=== PATIENT | female | born 1955 | race Two or more races ===

== ENCOUNTER → 2019-08-04 | Outpatient (CLI) | payer BC, OTHER ==
[2016-05-12 15:00] VITALS: BP 138/64
[~2019-08-04] MED LIST: CIPR250T30 PO; GLYB1.252 PO; PHEN-444 PO; POLY17PO29 PO
--- NOTE | 2019-08-06 16:26 | RAD ---
EXAM: BILATERAL DIGITAL 3D SCREENING MAMMOGRAPHY. HISTORY: Routine mammographic screening. TECHNIQUE: Bilateral digital 3D and tomographic images were obtained in CC and MLO projections. Computer-aided detection was applied. COMPARISON: None available. This is interpreted as a baseline study. COMPOSITION: A. The breasts are almost entirely fatty. FINDINGS: Atherosclerotic calcifications are benign. There are no suspicious masses, microcalcifications or architectural distortion. The parenchymal pattern is stable. BI-RADS CATEGORY 2: Benign. RECOMMENDATION: 1. Routine screening mammography in one year. If mammography demonstrates dense breast tissue (heterogenously dense or extremely dense, category C or D), which could hide abnormalities, and if other risk factors for breast cancer have been identified, supplemental screening tests that may be suggested by the ordering physician may be of benefit. Dense breast tissue, in and of itself, is a relatively common condition. Therefore, this information is not provided to cause undue concern, but rather to raise awareness and to promote discussion with the referring physician regarding the presence of other risk factors, in addition to dense breast tissue. The results of this mammography examination is provided to the patient and referring physician. The patient should contact their referring physician if any questions or concerns exist regarding this report. PQRS compliance statement - Patient information was entered into a reminder system with a target due date for the next mammogram. "Our facility is accredited by the [employer] Mammography Program." Electronically signed by: America Angeles MD (08/06/2019 4:23 PM) [id number]
== END | disposition home or self-care (01) ==
LOC: MAMMO 08:59
PROVIDERS: ATTEND Family Medicine
DX: Z12.31 Encounter for screening mammogram for malignant neoplasm of breast (principal); N64.89 Other specified disorders of breast
CPT/HCPCS: 77063; 77067

== ENCOUNTER 2020-09-03 11:06 | Emergency (ER) | payer BC, MEDICARE ==
[~2020-09-03] VITALS: Ht 154.9 cm; Wt 54.5 kg
[2020-09-03] MEDS ORDERED: diazePAM 5 MG TABLET PO ONE (11:30)
[2020-09-03] MEDS ORDERED: KETOROLAC 60 MG/2 ML VIAL. IM ONE (11:30)
--- NOTE | 2020-09-03 11:31 | PHYS DOC ---
Past Medical History Past Medical History: Diabetes-Type II, High Cholesterol Additional Past Medical Histor: neuropathy Past Surgical History: No Surgical History Smoking Status: Current Every Day Smoker Alcohol Use: Heavy Drug Use: None General Adult EDM: Chief Complaint: LOWER BACK PAIN OR INJURY HPI: HPI: Patient is a 65 year old female with history of high cholesterol, diabetes type 2, presenting today complaining of 10 out of 10 bilateral low back pain nonradiating in nature, symptoms began on last week after she stood up from sitting position and turned to the left. Patient denies any numbness or tingling to bilateral lower extremities, denies any loss of bowel/bladder function. States symptoms are worse when laying down. Reports sitting up and putting pressure on her back relieves the symptoms. Describes the pain as sharp and intermittent. Review of Systems: Review of Systems: Constitutional: Denies fever or chills. [] GI: Denies abdominal pain, nausea, vomiting, bloody stools or diarrhea. [] : Denies dysuria. [] Musculoskeletal: Reports low back pain Integument: Denies rash. [] Neurologic: Denies headache, focal weakness or sensory changes. [] Psychiatric: Denies depression or anxiety. [] Heart Score: Risk Factors: Risk Factors: DM, Current or recent (<one month) smoker, HTN, HLP, family history of CAD, obesity. Risk Scores: Score 0 - 3: 2.5% MACE over next 6 weeks - Discharge Home Score 4 - 6: 20.3% MACE over next 6 weeks - Admit for Clinical Observation Score 7 - 10: 72.7% MACE over next 6 weeks - Early Invasive Strategies Allergies: Allergies: Allergies Coded Allergies Type Severity Reaction Last Updated Verified No Known Drug Allergies 05/09/16 No Physical Exam: PE: Constitutional: Well developed, well nourished, no acute distress, non-toxic appearance. [] Abdomen: Bowel sounds normal, soft, no tenderness, no masses, no pulsatile masses. [] Skin: Warm, dry, no erythema, no rash. [] Back: Diffuse paraspinal muscle tenderness of bilateral lumbar spine, no midline lumbar spine tenderness, no CVA tenderness. [] Extremities: No tenderness, no cyanosis, no clubbing, ROM intact, no edema. [] Neurologic: Alert and oriented X 3, normal motor function, normal sensory function, no focal deficits noted. [] Psychologic: Anxious appearing patient, very talkative Current Patient Data: Vital Signs: Vital Signs Date Time Temp Pulse Resp B/P (MAP) Pulse Ox O2 Delivery O2 Flow Rate FiO2 09/03/20 11:10 98.3 90 16 174/84 (114) 97 Room Air 98.3 EKG: EKG: [] Radiology/Procedures: Radiology/Procedures: []PROCEDURE: LUMBAR SPINE 2-3V XR LUMBAR SPINE 2-3V History: Reason: low back pain, no known injury / Spl. Instructions: / History: Comparison: None. Technique: 3 views of the lumbar spine. Findings: 5 nonrib-bearing lumbar vertebral segments. No fracture or dislocation. Mild levoconvex curvature. Mild anterolisthesis of L4 on L5. Mild degenerative changes with disc space narrowing at L2-L3 and L4-L5. Mild degenerative endplate changes L2-L3. Atherosclerotic calcification of the aorta. Sacroiliac joints are unremarkable. Impression: 1. Mild degenerative changes of the lumbar spine without acute finding. No significant changes from 2018 comparison. Electronically signed by: Jeremy Becerra MD (09/03/2020 12:25 PM) [facility] DICTATED and SIGNED BY: JEREMY BECERRA MD DATE: 09/03/20 [id number] 0 Course & Med Decision Making: Course & Med Decision Making Pertinent Labs and Imaging studies reviewed. (See chart for details) This is a 65-year-old female patient presenting to the ED today complaining of bilateral low back pain, symptoms began on last week when she was standing up and turned to the left. No cauda equina syndrome symptoms. Lumbar spine x-rays noted for DJD otherwise no acute findings. Discharge to cyclobenzaprine. Follow-up with PCP in 1 week. She is already on gabapentin and an NSAID. Dragon Disclaimer: Dragon Disclaimer: This electronic medical record was generated, in whole or in part, using a voice recognition dictation system. Departure Departure Impression: Primary Impression: Low back pain Qualified Codes: M54.5 - Low back pain Additional Impression: Degenerative joint disease (DJD) of lumbar spine Qualified Codes: M47.816 - Spondylosis without myelopathy or radiculopathy, lumbar region Disposition: 01 DC HOME SELF CARE/HOMELESS Condition: STABLE Referrals: Arturo SELBY MD (PCP) Follow-up in 1 week Patient Instructions: Back Pain, Adult Additional Instructions: You were evaluated in the emergency room for back pain, your back x-rays were noted for arthritis otherwise no acute findings. Please follow-up with your own primary care doctor in 1 week. Scripts Cyclobenzaprine Hcl (CYCLOBENZAPRINE HCL) 10 Mg Tablet 1 TAB PO TID, #30 TAB Prov: AIYANA TOM APRN 09/03/20 AIYANA TOM APRN Sep 03, 2020 11:31
--- NOTE | 2020-09-03 12:27 | RAD ---
XR LUMBAR SPINE 2-3V History: Reason: low back pain, no known injury / Spl. Instructions: / History: Comparison: None. Technique: 3 views of the lumbar spine. Findings: 5 nonrib-bearing lumbar vertebral segments. No fracture or dislocation. Mild levoconvex curvature. Mi ld anterolisthesis of L4 on L5. Mild degenerative changes with disc space narrowing at L2-L3 and L4-L 5. Mild degenerative endplate changes L2-L3. Atherosclerotic calcification of the aorta. Sacroiliac j oints are unremarkable. Impression: 1. Mild degenerative changes of the lumbar spine without acute finding. No significant changes from 2018 comparison. Electronically signed by: Jeremy Becerra MD (09/03/2020 12:25 PM) [facility]
[2020-09-03 12:45] VITALS: BP 165/74
[2020-09-03] MEDS ORDERED: CYCL10TA2 PO (12:48)
== END 2020-09-03 13:23 | disposition home or self-care (01) ==
LOC: ER 11:06
DX: M54.5 Low back pain (principal); M47.816 Spondylosis without myelopathy or radiculopathy, lumbar region; E11.40 Type 2 diabetes mellitus with diabetic neuropathy, unspecified; E78.00 Pure hypercholesterolemia, unspecified; F17.200 Nicotine dependence, unspecified, uncomplicated; F10.20 Alcohol dependence, uncomplicated; Y90.9 Presence of alcohol in blood, level not specified
CPT/HCPCS: 72100; 96372; 99285; J1885

== ENCOUNTER → 2020-09-16 | Outpatient (CLI) | payer BC, MEDICARE ==
[2020-09-03 12:45] VITALS: BP 165/74
[~2020-09-16] MED LIST changes: +CYCL10TA2 PO
--- NOTE | 2020-09-16 11:51 | KCIC ---
EXAM: Pelvis CT without contrast. HISTORY: Sacral pain. Falls. TECHNIQUE: Computed tomographic images of the pelvis were obtained without contrast. *One or more of the following individualized dose reduction techniques were utilized for this examina tion: 1. Automated exposure control. 2. Adjustment of the mA and/or kV according to patient size. 3. Use of iterative reconstruction technique. COMPARISON: 05/09/2016. FINDINGS: No displaced fracture is seen. There is mild degenerative subchondral sclerosis and vacuum phenomenon involving the sacroiliac joints. There is a broad-based posterior central disc protrusion superimposed on a disc bulge, endplate remodeling and moderate right facet arthropathy at L4-L5. This results in suspected foraminal stenosis which is partially excluded from the [id number]. There is moderate to severe central canal stenosis at this level. There is a posterior central to right parac entral disc protrusion superimposed on a disc bulge and endplate remodeling at L5-S1, resulting in mi ld left foraminal and central canal stenosis. There is calcified atherosclerotic plaque involving the iliac bifurcation. The urinary bladder, uterus and visualized loops of bowel are unremarkable. The v isualized femoral heads are normal in consideration and seated appropriately. IMPRESSION: 1. No acute osseous finding. 2. Degenerative change involving the lower lumbar spine, resulting in stenosis as described above. 3. Degenerative change involving the sacroiliac joints. Electronically signed by: Janna Dunn MD (09/16/2020 11:49 AM) [id number]
== END ==
LOC: KCIC CT 10:12
PROVIDERS: ATTEND Family Medicine
DX: M46.1 Sacroiliitis, not elsewhere classified (principal); M47.816 Spondylosis without myelopathy or radiculopathy, lumbar region
CPT/HCPCS: 72192

== ENCOUNTER → 2020-10-08 | Outpatient (CLI) | payer BC, MEDICARE ==
[~2020-10-08] MED LIST changes: +ATOR10TA60 PO; +GABA600T7 PO; +IBUP-1670 PO; +IOHEXOL 180 MG/ML 10 ML VIAL. ONE; +METF10007 PO; +VITA1TAB31 PO; +methylPREDNISolone ACETATE 40 MG/ML VIAL. ONE; +methylPREDNISolone ACETATE 80 MG/ML VIAL. ONE
--- NOTE | 2020-10-08 12:59 | PDOC1 ---
INITIAL PAIN CONSULT DATE OF SERVICE: DOS: DATE: 10/08/20 TIME: 12:52 CHIEF COMPLAINT: Chief Complaint: Low back and right lower extremity pain HISTORY OF PRESENT ILLNESS: 65-year-old female presents history of pain in the low back and right lower extremity for approximately 5 years. Patient reports not the result of any specific injury or accident that she is aware of, but the pain has been getting worse with time in the low back and the right lower extremity mostly radiating the posterior gluteus posterior lateral thigh posterior calf lateral medial aspect of the calf as well as the medial thigh to the level of the ankle but not into the foot patient reports is constant shooting tingling with numbness and radiating pain in the lower extremity aching and burning in the back as well patient reports it wakes her from sleep least 2-3 times a night does not affect her bowel bladder control but does affect ability to walk fairly significantly and she is using a walker which she has with her today to ambulate and has for about 2 years now patient is taking tramadol which does decrease the pain by about 25% she is also tried Flexeril which is not helpful. Patient has had physical therapy which was helpful temporarily and is still doing some stretching exercises and strengthening also had chiropractic treatment which was not significantly helpful. Patient rates her disability rating 0-10 ten being the worst is a ten in all categories family home responsibilities, social activity, recreation, occupation, self-care, sexual behavior, life support activities. Patient reports no overt motor loss but she is very unstable and falls towards her right side when she does stumble and the leg does feel weak with walking for more than 10 to 15 minutes patient reports is better with sitting or laying down but again awakened from sleep frequently. Patient did have a CT scan showing broad posterior central disc protrusion superimposed on disc bulge endplate remodeling and moderate right facet arthropathy at L4-5 resulting in suspected foraminal stenosis moderate severe central canal stenosis at this level as well with a posterior central right paracentral disc protrusion superimposed on a disc bulge and endplate remodeling at L5-S1 resulting mild left foraminal and central canal stenosis. PAST MEDICAL HISTORY: PMH: Type 2 diabetes, hyperlipidemia, cigarette smoking, dizziness, headaches, osteoporosis PREVIOUS SURGERIES: Past Surgical Hx: Tubal ideation 1981 CURRENT MEDICATIONS: Current Meds: Active Scripts Medications Dose Route/Sig Max Daily Dose Days Date Category D3 + K2 Dots 1,000 Units Tab (Vitamin D3/Vitamin K2) 1 Each Tab.rapdis 1 Each PO WEEKLY 10/08/20 Reported Ibuprofen 200 Mg Tablet Unknown Dose PO TID 10/08/20 Reported Metformin Hcl 1,000 Mg Tablet Unknown Dose PO BIDWMEALS 10/08/20 Reported Atorvastatin Calcium 10 Mg Tablet Unknown Dose PO HS 10/08/20 Reported Gabapentin 600 Mg Tablet Unknown Dose PO TID 10/08/20 Reported ALLERGIES; Allergies: Coded Allergies: No Known Drug Allergies (Unverified , 05/09/16) FAMILY HISTORY: Family Hx: No major medical problems or conditions that she is aware of SOCIAL HISTORY: Social Hx: Patient drinks alcohol about twice a day smokes cigarettes less than a pack a day but has for 30 years and continues to smoke, does not use any illegal illicit or recreational drugs is with her spouse lives locally in [facility] REVIEW OF SYSTEMS: ROS: Positive for those items mentioned in history of present illness, all systems are reviewed, otherwise negative ,and are complete full and well-documented on patient's chart. PHYSICAL EXAM: VS: Blood pressure is 131/75 pulse seventy-nine respirations eighteen temperature 97.8 F height is 5 feet 4 inches weight is 118 pounds PE: PHYSICAL EXAMINATION: GENERAL: The patient is awake, alert, oriented, appropriate, very pleasant demeanor HEENT: Shows normocephalic, atraumatic. Extraocular movements are intact and symmetrical. Oral cavity: Mucous membranes moist and pink. NECK: Shows anterior throat supple without palpable lymphadenopathy noted. Swallow reflex symmetrical. CHEST: Shows normal on inspection. Breath sounds are clear bilaterally, no rales or rhonchi. HEART: Shows S1, S2 clear. No murmurs auscultated. ABDOMEN: Soft, nontender, nondistended, obese. No palpable organomegaly is noted. No rebound or guarding demonstrated. BACK: Shows spine grossly in the midline. Normal-appearing cervical lordotic curvature. There is increased thoracic kyphosis, some minor flattening of the lumbar lordotic curvature. Lumbar paraspinous muscles show symmetrical on inspection, on palpation shows some moderate tenderness diffusely throughout the upper, middle and lower distribution of the paraspinous muscles bilaterally and also into the lower thoracic paraspinous musculature, firm and tender, but without specific trigger points, without radiation of pain. The patient has good rotational motion of the lumbar spine, laterally as well as extension and flexion without significant difficulty. No tenderness over the spinous processes, sacrum or sacroiliac regions. EXTREMITIES: Lower extremities show deep tendon reflexes 1+ in the patellar and tendo calcaneus tendons. Motor exam is 3-4 on a scale of 5 with right dorsiflexion, extension, quadriceps and hamstring flexion and five/5 on the left. Peripheral pulses are 1+ posterior tibial. No peripheral edema is noted bilaterally. Lower extremities are warm and dry to touch, equal in color and appearance. Straight leg raise noted to be positive on the right about 35-40 degrees, left side is negative. Gaenslen's and Сергей's maneuvers are negative bilaterally. The patient is able to stand, has difficulty rising from a seated position needs help with the arms of the chair once standing has difficulty trying to stand on her toes and is not able to put all of her weight on her right leg secondary to instability. Patient is walking with a shuffling gait and uses a walker to ambulate. SKIN: Shows warm and dry, good turgor. No edema. No sores, rashes or bruising throughout. IMPRESSION: Impression: 65-year-old female with long history low back right lower extremity pain with radicular fashion. CT scan lumbar spine as noted Type 2 diabetes Hyperlipidemia Osteoporosis Cigarette smoking Plan: Options were discussed with the patient including conservative medical management continued physical therapies and interventional techniques. Patient would like to pursue interventional techniques. We discussed a lumbar epidural steroid traction is description as well as anatomical models to describe the procedure. Risks were discussed including but not limited to: Bleeding, infection, possibility of epidural hematoma and subsequent neurological compromise, dural puncture, headaches, spinal cord and/or nerve damage, side effects of steroid medication, and poor results regarding pain control. Patient understands and wished to proceed. Patient will return to clinic in approximate 2 weeks for follow-up, was counseled as return appointment, activity level, and side effects to be aware of. Procedure is lumbar epidural steroid injection under local anesthetic using sterile prep and drape at the L four five level using C-arm fluoroscopic guidance in both AP and lateral views medications injected is 120 mg Depo-Medrol + ten mL preservative-free normal saline and 2 mL contrast- condition at discharge is stable patient tolerated procedure well had no complications. JOLENE ODOM MD Oct 08, 2020 12:59
--- NOTE | 2020-10-08 12:59 | PDOC4 ---
PROCEDURE Procedure Patient was consented for lumbar epidural steroid injection. Risks were dis cussed including but not limited to: Bleeding, infection, possibility of epidural hematoma and subsequent neurological compromise, dural puncture, headaches, spinal cord and/or nerve damage, side effects of steroid medication, and poor results regarding pain control. Patient understands and wished to proceed. Procedure is lumbar epidural steroid injection under local anesthetic using sterile prep and drape at the L4-5 level using C-arm fluoroscopic guidance in both AP and lateral views medications injected is 120 mg Depo-Medrol + ten mL preservative-free normal saline and 2 mL contrast- condition at discharge is stable patient tolerated procedure well had no complications. JOLENE ODOM MD Oct 08, 2020 12:59
== END | disposition home or self-care (01) ==
LOC: PNCL 08:16
PROVIDERS: ATTEND Anesthesiology
DX: M54.5 Low back pain (principal); M79.604 Pain in right leg; E11.9 Type 2 diabetes mellitus without complications; M81.0 Age-related osteoporosis without current pathological fracture; E78.5 Hyperlipidemia, unspecified; F17.210 Nicotine dependence, cigarettes, uncomplicated; Z98.51 Tubal ligation status; Z98.890 Other specified postprocedural states; Z79.899 Other long term (current) drug therapy; Z79.84 Long term (current) use of oral hypoglycemic drugs; Z72.89 Other problems related to lifestyle
CPT/HCPCS: 62323; J1030; J1040; Q9965; 77002

== ENCOUNTER → 2020-10-17 | Outpatient (CLI) | payer BC, MEDICARE ==
[~2020-10-17] MED LIST changes: -IOHEXOL 180 MG/ML 10 ML VIAL. ONE; -methylPREDNISolone ACETATE 40 MG/ML VIAL. ONE; -methylPREDNISolone ACETATE 80 MG/ML VIAL. ONE
--- NOTE | 2020-10-17 09:57 | PDOC ---
Progress Note - Pain Clinic Date of Service: DOS: DATE: 10/17/20 TIME: 09:54 Diagnosis: Dx: Lumbar radiculopathy with lumbar degenerative disc disease and lumbar spinal stenosis History or Present Illness: HPI: 65-year-old female returns for follow-up status post lumbar epidural steroid traction x1. Patient reports significant decrease in pain with 100% in her right hip and right thigh but her right lower leg has some significant radiating pain from the knee down into the foot with some numbness and tingling patient reports that shooting cramping at times tingling can be unbearable with weightbearing but the rest of the leg is doing much better. Patient reports her pain is a 9 on a scale of 10 in the right lower extremity over the past week 9 on average 7 its least is a 9 today. Patient reports has been increasing activity with distance walking doing household activities travel with greater ease and comfort still wakes her from sleep at night occasionally but not near as much as it had again patient's back and right hip and thigh are doing much better but the right lower leg is still painful patient reports no new motor or sensory deficits no new bowel or bladder incontinence or other complaints. Physical Exam: VS: Blood pressure is 135/81 pulse 73 respirations 18 temperature 97.8 F height is 5 feet 4 inches weight is 119 pounds PE: PHYSICAL EXAMINATION: GENERAL: The patient is awake, alert, oriented, appropriate, very pleasant demeanor HEENT: Shows normocephalic, atraumatic. Extraocular movements are intact and symmetrical. Oral cavity: Mucous membranes moist and pink. NECK: Shows anterior throat supple without palpable lymphadenopathy noted. Swallow reflex symmetrical. CHEST: Shows normal on inspection. Breath sounds are clear bilaterally, distant but no rales or rhonchi. HEART: Shows S1, S2 clear. No murmurs auscultated. ABDOMEN: Soft, nontender, nondistended, obese. No palpable organomegaly is noted. BACK: Shows spine grossly in the midline. Normal-appearing cervical lordotic curvature. There is slightly increased thoracic kyphosis, some minor flattening of the lumbar lordotic curvature. Lumbar paraspinous muscles show symmetrical on inspection, on palpation shows some moderate tenderness diffusely throughout the upper, middle and lower distribution of the paraspinous muscles without specific trigger points, without radiation of pain. The patient has good rotational motion of the lumbar spine, both laterally as well as extension and flexion without significant difficulty. No tenderness over the spinous processes, sacrum or sacroiliac regions. EXTREMITIES: Lower extremities show deep tendon reflexes 1+ in the patellar and tendo calcaneus tendons. Motor exam is 4 on a scale of 5 with right dorsiflexion, extension, quadriceps and hamstring flexion and 5/5 on the left. Peripheral pulses are 1 posterior tibial. No peripheral edema is noted bilaterally. Lower extremities are warm and dry to touch, equal in color and appearance. SKIN: Shows warm and dry, good turgor. No edema. No sores, rashes or bruising throughout. Procedure: Procedure: Options discussed with patient. Patient chart was reviewed as her current medication regimen updated current review of systems updated today as well. We will hold any further injections at this time as patient would like to see how she does in the next week or so on her own with some stretching strength exercises and walking more frequently. If not significant improved we did discuss potential repeat of the lumbar epidural steroid injection in the future. Patient follow-up in approximately 1 to 2 weeks or sooner if necessary. Medication Injected: Med Injected: None Condition at Discharge: Condition at Discharge: Condition at discharge is stable. JOLENE ODOM MD Oct 17, 2020 09:57
== END | disposition home or self-care (01) ==
LOC: PNCL 08:52
PROVIDERS: ATTEND Anesthesiology
DX: M51.16 Intervertebral disc disorders with radiculopathy, lumbar region (principal); M48.061 Spinal stenosis, lumbar region without neurogenic claudication; F17.210 Nicotine dependence, cigarettes, uncomplicated; Z79.899 Other long term (current) drug therapy; Z98.51 Tubal ligation status; Z98.890 Other specified postprocedural states; Z72.89 Other problems related to lifestyle
CPT/HCPCS: G0463

== ENCOUNTER → 2021-01-21 | Outpatient (CLI) | payer BC, MEDICARE ==
--- NOTE | 2021-01-21 10:44 | KCIC ---
EXAM: Chest, 2 views. HISTORY: Shortness of air. COMPARISON: None. FINDINGS: 2 views of the chest are obtained. There is no infiltrate, pleural effusion or pneumothorax . There are chronic appearing interstitial changes and there is hyperinflation likely due to emphysem a. There is right apical pleural parenchymal scarring. There is linear atelectasis or scarring within the right mid thorax. The heart is normal in size. IMPRESSION: Chronic appearing interstitial changes and suspected emphysema. Electronically signed by: Janna Dunn MD (01/21/2021 10:41 AM) [id number]
== END ==
LOC: KCIC 09:44
PROVIDERS: ATTEND Family Medicine
DX: J98.4 Other disorders of lung (principal); R06.02 Shortness of breath
CPT/HCPCS: 71046

== ENCOUNTER 2021-01-28 00:15 | Inpatient (IN) | payer BC, MEDICARE ==
[~2021-01-28] VITALS: Ht 162.6 cm; Wt 57.5 kg
--- NOTE | 2021-01-28 00:29 | PHYS DOC ---
Past Medical History Past Medical History: Diabetes-Type II, High Cholesterol Additional Past Medical Histor: neuropathy Past Surgical History: No Surgical History Smoking Status: Current Every Day Smoker Alcohol Use: Heavy Drug Use: None General Adult EDM: Chief Complaint: SHORTNESS OF BREATH HPI: HPI: Patient is a 65 year old female with past medical history of copd, diabetes, hyperlipidemia presents with the chief complaint of shortness of breath. Shortness of breath since tuesday-- progressively getting worse. Cough without shortness of breath. Chest pain with deep breaths. On arrival patient with room air sats in the 70's. Patient has been using home breathing treatments with minimal improvement. On Tuesday patient was seen at an Urgent Care and placed on steroids. Patient denies any fever or chills. Patient not covid vaccinated. Review of Systems: Review of Systems: Constitutional: Denies fever or chills. [] Eyes: Denies change in visual acuity. [] HENT: Denies nasal congestion or sore throat. [] Respiratory: Denies cough or shortness of breath. [] Cardiovascular: Denies chest pain or edema. [] GI: Denies abdominal pain, nausea, vomiting, bloody stools or diarrhea. [] : Denies dysuria. [] Musculoskeletal: Denies back pain or joint pain. [] Integument: Denies rash. [] Neurologic: Denies headache, focal weakness or sensory changes. [] Endocrine: Denies polyuria or polydipsia. [] Lymphatic: Denies swollen glands. [] Psychiatric: Denies depression or anxiety. [] Heart Score: C/O Chest Pain: Yes HEART Score for Chest Pain: HEART Score for Chest Pain Response (Comments) Value History Slighlty/Non-Suspicious 0 ECG Nonspecific Repolarizatio 1 Age >45 - < 65 1 Risk Factors 1 or 2 Risk Factors 1 Troponin < Normal Limit 0 Total 3 Risk Factors: Risk Factors: DM, Current or recent (<one month) smoker, HTN, HLP, family history of CAD, obesity. Risk Scores: Score 0 - 3: 2.5% MACE over next 6 weeks - Discharge Home Score 4 - 6: 20.3% MACE over next 6 weeks - Admit for Clinical Observation Score 7 - 10: 72.7% MACE over next 6 weeks - Early Invasive Strategies Allergies: Allergies: Allergies Coded Allergies Type Severity Reaction Last Updated Verified No Known Drug Allergies 05/09/16 No Physical Exam: PE: General: alert, no acute distress. HENT: bilateral external ears normal, oropharynx moist, nose normal. Head:: Normocephalic, atraumatic. Neck: Trachea midline. Eyes: EOMI, Normal conjunctiva, No drainage CARDIOVASCULAR: Tachycardic RESPIRATORY: Decreased breath sound Back: Full range of motion. Skin: Warm, dry, no erythema, no rash. MUSCULOSKELETAL: Full range of motion of bilateral upper and lower extremities. GASTROINTESTINAL: Abdomen soft without rebound or guarding. NEUROLOGICAL: Alert and noted to person, place and time. No neurological deficits observed Psychiatric: Cooperative. Normal judgment EKG: EKG: [] Performed at 0026 Rate [address] elevation No ST depression No acute [place] Radiology/Procedures: Radiology/Procedures: [] Impression: XR CHEST 1V INDICATION: Reason: shortness of breath / Spl. Instructions: / History: . COMPARISON STUDY: 01/21/2021. FINDINGS: Lungs: Normal lung volume. Unchanged mild interstitial opacities. No new consolidation. Pleura: No pleural effusion or pneumothorax. Heart and Mediastinum: The cardiomediastinal silhouette is normal. Atherosclerosis of the thoracic aorta. IMPRESSION: Unchanged mild interstitial opacities. No new consolidation. Electronically signed by: Manuel Mason MD (01/28/2021 1:10 AM) [facility] Course & Med Decision Making: Course & Med Decision Making Pertinent Labs and Imaging studies reviewed. (See chart for details) [] Patient was evaluated for chief complaint. Work-up consisted of laboratory analysis radiologic imaging and EKG. Results reviewed and discussed with patient. Treatment included Solu-Medrol and DuoNeb Lasix Rocephin and Zithromax.. Patient was admitted to the hospitalist for further evaluation and treatment. Dragon Disclaimer: Dragon Disclaimer: This electronic medical record was generated, in whole or in part, using a voice recognition dictation system. Departure Departure Impression: Primary Impression: COPD (chronic obstructive pulmonary disease) Additional Impressions: CHF (congestive heart failure) Dyspnea Person under investigation for COVID-19 Disposition: ADMITTED INPATIENT Condition: STABLE Referrals: Arturo SELBY MD (PCP) ANA FRENCH DO Jan 28, 2021 00:29
--- NOTE | 2021-01-28 00:31 | EKG ---
[facility] [address] [place] [address] Test Date: 2021-01-28 Test Time: 00:26:12 Pat Name: BEATRIZ HARRISON Department: Room: Gender: F [employer] Service Attendant: : 1955 Requested By: ANA FRENCH Order Number: [id number] Reading MD: Measurements Intervals [place] Rate: 123 P: FL: QRS: 41 QRSD: 76 T: 131 QT: 298 QTc: 432 Interpretive Statements ATRIAL FIB./FLUTTER WITH RAPID VENTRICULAR RESPONSE VENTRICULAR PREMATURE COMPLEX(ES) ST & T ABNORMALITY, CONSIDER INFERIOR ISCHEMIA OR LEFT VENTRICULAR STRAIN T ABNORMALITY IN HIGH LATERAL LEADS ABNORMAL ECG RI6.02 No previous ECG available for comparison
[2021-01-28 00:51] LABS: BASO % 0 % (0-3); EOS % 0 % (0-3); HEMATOCRIT 34.1 % (36.0-47.0); HEMOGLOBIN 11.5 g/dL (12.0-15.5); LYMPH # 1.3 x10^3/uL (1.0-4.8); LYMPH % 10 % (24-48); MEAN CORPUSCULAR HEMOGLOBIN 33 pg (25-35); MEAN CORPUSCULAR HGB CONC 34 g/dL (31-37); MEAN CORPUSCULAR VOLUME 98 fL (79-100); MONO # 0.9 x10^3/uL (0.0-1.1); MONO % 7 % (0-9); NEUT # 11.5 x10^3/uL (1.8-7.7); NEUT % 83 % (31-73); PLATELET COUNT 197 x10^3/uL (140-400); RED BLOOD COUNT 3.47 x10^6/uL (3.50-5.40); RED CELL DISTRIBUTION WIDTH 14.3 % (11.5-14.5); WHITE BLOOD COUNT 13.9 x10^3/uL (4.0-11.0)
[2021-01-28 01:05] LABS: CALCIUM 9.3 mg/dL (8.5-10.1); CREATININE 1.5 mg/dL (0.6-1.0); GFR 34.9; POTASSIUM 3.9 mmol/L (3.5-5.1)
[2021-01-28 01:05] LABS: PROTHROMBIN TIME PATIENT 11.4 SEC (11.7-14.0)
[2021-01-28 01:11] LABS: ALBUMIN 3.3 g/dL (3.4-5.0); ALBUMIN/GLOBULIN RATIO 0.7 (1.0-1.7); TOTAL BILIRUBIN 0.4 mg/dL (0.2-1.0); TOTAL PROTEIN 7.8 g/dL (6.4-8.2)
--- NOTE | 2021-01-28 01:12 | RAD ---
XR CHEST 1V INDICATION: Reason: shortness of breath / Spl. Instructions: / History: . COMPARISON STUDY: 01/21/2021. FINDINGS: Lungs: Normal lung volume. Unchanged mild interstitial opacities. No new consolidation. Pleura: No pleural effusion or pneumothorax. Heart and Mediastinum: The cardiomediastinal silhouette is normal. Atherosclerosis of the thoracic ao rta. IMPRESSION: Unchanged mild interstitial opacities. No new consolidation. Electronically signed by: Manuel Mason MD (01/28/2021 1:10 AM) [facility]
[2021-01-28] MEDS ORDERED: IPRATRPIUM/ALBUTEROL 0.5/2.5MG 3 ML NEBU. NEB ONE (02:00)
[2021-01-28] MEDS ORDERED: methylPREDNISolone SOD SUCC PF 125 MG/2 ML VIAL. IV ONE (02:00)
[2021-01-28] MEDS ORDERED: FUROSEMIDE 40 MG/4 ML VIAL. IVP ONE (02:30)
[2021-01-28 04:00] VITALS: BP 118/61
[2021-01-28] MEDS ORDERED: AZITHRMYCN 500MG IVPB FOR OMNI 250 ML IV ONE (04:00)
[2021-01-28] MEDS: cefTRIAXone IV Push 1 GM VIAL. IVP SCH (04:14)
[2021-01-28] MEDS ORDERED: ALBUTEROL SULFATE 8GM INHALER. INH PRN (04:45)
[2021-01-28] MEDS ORDERED: IV NORMAL SALINE 1000ML BAG 1,000 ML IV ONE (05:00)
[2021-01-28] MEDS ORDERED: ACETAMINOPHEN 325 MG TABLET. PO PRN (06:15)
[2021-01-28] MEDS ORDERED: guaiFENesin DM 200MG/20MG 10 ML SYRUP PO PRN (06:15)
[2021-01-28] MEDS ORDERED: DEXTROSE 50% 25 GM / 50ML DISP.SYRIN. IV PRN (06:15)
[2021-01-28] MEDS ORDERED: NICOTINE 21MG PATCH. TD PRN (06:15)
[2021-01-28] MEDS ORDERED: cloNIDine HCL 0.1 MG TABLET PO PRN (06:15)
[2021-01-28] MEDS ORDERED: ALBUTEROL SULFATE 2.5 MG/3 ML NEBU. NEB PRN (06:15)
[2021-01-28] MEDS ORDERED: ONDANSETRON PF 4 MG/2 ML VIAL. IVP PRN (06:15)
[2021-01-28 07:00] VITALS: BP 131/72
[2021-01-28] MEDS: IPRATROPIUM/ALBUTEROL 20/100mcg/INH INHALER. INH SCH ×4 (07:32→22:56)
[2021-01-28] MEDS: HEPARIN for SUB-Q USE 5,000 UNIT/ML VIAL. SQ SCH ×3 (07:34→22:30)
[2021-01-28] MEDS ORDERED: IPRATRPIUM/ALBUTEROL 0.5/2.5MG 3 ML NEBU. NEB SCH (08:00)
[2021-01-28] MEDS ORDERED: MULTIVIT INFUSN,ADULT 4,VIT K 10 ML, THIAMINE INJ 100 MG, FOLIC ACID INJ 1 MG in IV NOR... IV ONE (09:00)
[2021-01-28] MEDS: INSULIN LISPRO 300 UNITS/3 ML VIAL. SQ SCH ×3 (09:05→17:00)
[2021-01-28] MEDS: FLUTICASONE/VILANTEROL 100/25 INHALER. INH SCH (09:06)
[2021-01-28] MEDS: GABAPENTIN 300 MG CAPSULE. PO SCH ×2 (09:06→22:25)
--- NOTE | 2021-01-28 10:34 | CONS ---
DATE OF CONSULTATION: 01/28/2021 PULMONARY CONSULTATION ATTENDING PHYSICIAN: Srini Tyler MD. REASON FOR CONSULTATION: Dyspnea, COPD. HISTORY OF PRESENT ILLNESS: The patient is a 65-year-old with past medical history of tobacco use and underlying COPD. She has been smoking for 35 years and still smokes cigarettes. She is not on home oxygen. She was brought into the hospital with complaint of shortness of breath and some cough. Her oxygen saturations were in the 70s. Her chest x-ray was performed in the emergency room, which was reviewed by me and shows faint interstitial infiltrates. They were unchanged since the . The patient's COVID rapid test is negative, awaiting on the PCR. She denies any headaches, no nausea or vomiting, no diarrhea, no dysuria. No focal weakness. PAST MEDICAL HISTORY: Significant for type 2 diabetes, COPD, dyslipidemia, neuropathy. PAST SURGICAL HISTORY: None. SOCIAL HISTORY: Smoker for 35 years, still smokes cigarettes. ALLERGIES: None. MEDICATIONS: Reviewed as listed in the MRAD including IV steroids and DuoNebs. REVIEW OF SYSTEMS: A 12-point system review obtained. Pertinent positives discussed in my present illness, otherwise noncontributory. All systems that were negative were reviewed as well. FAMILY HISTORY: Noncontributory to lungs. PHYSICAL EXAMINATION: VITAL SIGNS: Reviewed. Her T-max is 99. Pulse ox 99% on 2 liters. NECK: Supple. LUNGS: With diminished breath sounds. CARDIOVASCULAR: With a regular rate. ABDOMEN: Soft, nontender. EXTREMITIES: With no pitting edema. LABORATORY DATA: Reviewed. Her COVID rapid is negative. Lactic acid was 4.2, now down to 2.4. INR 0.8. White cell count 13.9, hemoglobin 11.5. IMPRESSION: 1. Dyspnea with acute hypoxic respiratory failure secondary to acute exacerbation of chronic obstructive pulmonary disease/acute bronchitis. Cannot exclude mild interstitial pneumonia. 2. Abnormal chest x-ray with faint interstitial infiltrates. Could be related to viral pneumonia. Awaiting PCR COVID. Rapid test for COVID is negative. 3. Underlying chronic obstructive pulmonary disease with ongoing tobaccoism. RECOMMENDATIONS: 1. Smoking cessation counseling provided. 2. Continue on current oxygen, keep saturation 92 and above. 3. Continue nebulizer. 4. Continue steroids. 5. Await final COVID PCR. 6. If negative, she could be discharged in the next 24 hours. Discussed with DURAN. MOISES/TAQUERIA DR: Audelia TID: [id number]
[2021-01-28 11:00] VITALS: BP 156/90
[2021-01-28] MEDS ORDERED: METF500T16 PO (11:02)
[2021-01-28] MEDS ORDERED: GABAPENTIN 300 MG CAPSULE. PO PRN (11:30)
--- NOTE | 2021-01-28 11:32 | PDOC1 ---
History and Physical Date of Service: DOS: DATE: 01/28/21 TIME: 11:19 Chief Complaint: Problems: (1) Person under investigation for COVID-19 (2) COPD (chronic obstructive pulmonary disease) (3) CHF (congestive heart failure) (4) Dyspnea (5) DM2 (diabetes mellitus, type 2) Chief Complain: Shortness of breath History of Present Illness: Reason for Visit: Shortness of breath HPI: Patient is a 65-year-old female who presented overnight due to ongoing shortness of breath. Patient has a history of COPD and is actively still smoking. Previously 1 pack a day smoker however reports that she is down to just a few cigarettes a day. Patient says last Tuesday she went to an urgent care due to shortness of breath and was placed on steroids. She combined this with home breathing treatments as well and initially had some improvement for a few days. Her shortness of breath however returned and last night she was struggling to breathe and thus presented to the emergency room. Upon arrival to the emergency room she was saturating in the 70s on room air; she is not on any home oxygen. Chest x-ray showed hazy opacities that were very much unchanged from previous x-ray. Patient was admitted and treatment for COPD exacerbation started. Past Medical/Surgical History: PMH/PSH: Type 2 diabetes with neuropathy, COPD, hyperlipidemia, remote history of atrial fibrillation Allergies: Allergies: Coded Allergies: No Known Drug Allergies (Unverified , 05/09/16) Family History: Family History: Unknown Social History: Social History: Current daily smoker for the past 35 years; denies alcohol drug use Current Medications: Current Medications Current Medications Diltiazem HCl (Cardizem Iv Push) 20 mg 1X ONCE IVP ; Start 01/28/21 at 01:00; Stop 01/28/21 at 02:09; Status DC Diltiazem HCl 125 mg/Sodium Chloride 125 ml @ 5 mls/hr 1X ONCE IV ; Start 01/28/21 at 01:00; Stop 01/28/21 at 02:10; Status DC Methylprednisolone Sodium Succinate (SOLU-Medrol 125MG VIAL) 125 mg 1X ONCE IV Last administered on 01/28/21at 01:50; Start 01/28/21 at 02:00; Stop 01/28/21 at 02:01; Status DC Albuterol/ Ipratropium (Duoneb) 3 ml 1X ONCE NEB Last administered on 01/28/21at 02:00; Start 01/28/21 at 02:00; Stop 01/28/21 at 02:01; Status DC Furosemide (Lasix) 40 mg 1X ONCE IVP Last administered on 01/28/21at 02:53; Start 01/28/21 at 02:30; Stop 01/28/21 at 02:31; Status DC Albuterol/ Ipratropium (Combivent Respimat 20-100 Mcg) 1 puff RTQID INH Last administered on 01/28/21at 07:32; Start 01/28/21 at 08:00 Ceftriaxone Sodium (Rocephin) 1 gm Q24H IVP Last administered on 01/28/21at 04:14; Start 01/28/21 at 04:00 Azithromycin 250 ml @ 250 mls/hr 1X ONCE IV Last administered on 01/28/21at 04:14; Start 01/28/21 at 04:00; Stop 01/28/21 at 04:59; Status DC Albuterol Sulfate (Ventolin Hfa) 1 puff PRN Q4HRS PRN INH dyspnea; Start 01/28/21 at 04:45 Sodium Chloride 1,000 ml @ 1,000 mls/hr 1X ONCE IV Last administered on 01/28/21at 07:32; Start 01/28/21 at 05:00; Stop 01/28/21 at 05:59; Status DC Albuterol/ Ipratropium (Duoneb) 3 ml RTQID NEB ; Start 01/28/21 at 08:00; Status UNV Fluticasone/ Vilanterol (Breo Ellipta 100-25 Mcg) 1 puff DAILY INH Last administered on 01/28/21at 09:06; Start 01/28/21 at 09:00 Ondansetron HCl (Zofran) 4 mg PRN Q4HRS PRN IVP NAUSEA/VOMITING 1ST CHOICE; Start 01/28/21 at 06:15 Acetaminophen (Tylenol) 650 mg PRN Q6HRS PRN PO MILD PAIN / TEMP > 100.3'F; Start 01/28/21 at 06:15 Albuterol Sulfate (Ventolin Neb Soln) 2.5 mg PRN Q4HRS PRN NEB SHORTNESS OF BREATH; Start 01/28/21 at 06:15; Status UNV Heparin Sodium (Porcine) (Heparin Sodium) 5,000 unit Q8HRS SQ Last administered on 01/28/21at 07:34; Start 01/28/21 at 07:00 Psyllium Hydrophilic Mucilloid (Metamucil Fiber Packet) 1 pkt QHS PO ; Start 01/28/21 at 21:00 Guaifenesin (Robitussin Dm) 10 ml PRN Q6HRS PRN PO COUGH 1ST CHOICE; Start 01/28/21 at 06:15 Insulin Human Lispro (HumaLOG) 0-9 UNITS TIDWMEALS SQ Last administered on 01/28/21at 09:05; Start 01/28/21 at 08:00 Dextrose (Dextrose 50%-Water Syringe) 12.5 gm PRN Q15MIN PRN IV SEE COMMENTS; Start 01/28/21 at 06:15 Nicotine (Nicoderm Cq 21mg) 1 patch PRN DAILY PRN TD SMOKING CESSATION; Start 01/28/21 at 06:15 Multivitamins (Thera M Plus) 1 tab DAILY PO ; Start 01/29/21 at 09:00 Folic Acid (Folic Acid) 1 mg DAILY PO ; Start 01/29/21 at 09:00 Thiamine Mononitrate (Vitamin B-1) 100 mg DAILY PO ; Start 01/29/21 at 09:00 Lorazepam (Ativan) 0.5 mg PRN Q1HR PRN PO For CIWA 8-14; Start 01/28/21 at 06:15 Lorazepam (Ativan) 1 mg PRN Q1HR PRN PO For CIWA 15 or greater; Start 01/28/21 at 06:15 Clonidine HCl (Catapres) 0.1 mg PRN Q1HR PRN PO SBP > 180 or DBP > 100, MRX3; Start 01/28/21 at 06:15 Multivitamins 10 ml/Thiamine HCl 100 mg/Folic Acid 1 mg/Sodium Chloride 1,011.2 ml @ 1,000.088 mls/hr 1X ONCE IV Last administered on 01/28/21at 09:07; Start 01/28/21 at 09:00; Stop 01/28/21 at 10:00; Status DC Methylprednisolone Sodium Succinate (SOLU-Medrol 40MG VIAL) 80 mg Q8HRS IV ; Start 01/28/21 at 14:00 Gabapentin (Neurontin) 300 mg BID PO Last administered on 01/28/21at 09:06; Start 01/28/21 at 09:00 Doxycycline Hyclate (Vibra-Tab) 100 mg BID PO ; Start 01/28/21 at 21:00; Status UNV Active Scripts Active Reported Metformin Hcl 500 Mg Tablet 500 Mg PO BIDWMEALS Ibuprofen 200 Mg Tablet Unknown Dose PO TID Atorvastatin Calcium 10 Mg Tablet Unknown Dose PO DAILY Gabapentin 600 Mg Tablet Unknown Dose PO TID ROS: Review of Systems Review of System REVIEW OF SYSTEMS: GENERAL: Denies weakness SKIN: No bruising, hair changes or rashes. EYES: No blurred, double or loss of vision. NOSE AND THROAT: No history of nosebleeds, hoarseness or sore throat. HEART: No history of palpitations, chest pain LUNGS: Endorsing cough and shortness of breath. GASTROINTESTINAL: Denies changes in appetite, nausea, vomiting, diarrhea or constipation. GENITOURINARY: No history of frequency, urgency, hesitancy or nocturia. NEUROLOGIC: Denies history of numbness, tingling, or tremor. PSYCHIATRIC: No history of panic, anxiety or depression. ENDOCRINE: No history of heat or cold intolerance, polyuria or polydipsia. EXTREMITIES: Denies joint pain, pain on walking or stiffness. Physical Exam: Vital Signs: Vital Signs Date Time Temp Pulse Resp B/P (MAP) Pulse Ox O2 Delivery O2 Flow Rate FiO2 01/28/21 07:00 99.0 91 20 131/72 (91) 99 Nasal Cannula 2.0 99.0 Physcial Exam: GEN: Mild distress HEENT: Normal cephalic, atraumatic, external auditory canals are patent EYES: Extraocular muscles are intact, pupil are equally round and reactive to light and accommodation MUSCULOSKELETAL: Well developed , well nourished, good range of motion ENDOCRINE: No thyromegaly was palpated LYMPHATICS: No cervical chain or axillary nodes were noted HEMATOPOIETIC: No bruising NECK: Supple, no JVD, no thyromegaly was noted LUNGS: Coarse throughout, no focal wheezing to suggest a pneumonia appreciated HEART: RRR, S1, S2 present. Peripheral pulses intact, no obvious murmurs noted ABDOMEN: Soft, nontender. Positive bowel sounds, no organomegaly, normal bowel sounds EXTREMITIES: Without clubbing, cyanosis, or edema. Pedal pulses intact. NEUROLOGIC: Normal speech and tone. A&O x 3, moves all extremities, no obvious focal deficits PSYCHIATRIC: Normal affect, normal mood. Stable SKIN: No ulcerations or rashes, good skin turgor, no jaundice VASCULAR: Good capillary refill, neurovascular bundle appears to be intact Labs: Labs: Laboratory Tests Test 01/28/21 00:35 01/28/21 00:40 01/28/21 00:50 01/28/21 05:58 White Blood Count 13.9 x10^3/uL (4.0-11.0) Red Blood Count 3.47 x10^6/uL (3.50-5.40) Hemoglobin 11.5 g/dL (12.0-15.5) Hematocrit 34.1 % (36.0-47.0) Mean Corpuscular Volume 98 fL (79-100) Mean Corpuscular Hemoglobin 33 pg (25-35) Mean Corpuscular Hemoglobin Concent 34 g/dL (31-37) Red Cell Distribution Width 14.3 % (11.5-14.5) Platelet Count 197 x10^3/uL (140-400) Neutrophils (%) (Auto) 83 % (31-73) Lymphocytes (%) (Auto) 10 % (24-48) Monocytes (%) (Auto) 7 % (0-9) Eosinophils (%) (Auto) 0 % (0-3) Basophils (%) (Auto) 0 % (0-3) Neutrophils # (Auto) 11.5 x10^3/uL (1.8-7.7) Lymphocytes # (Auto) 1.3 x10^3/uL (1.0-4.8) Monocytes # (Auto) 0.9 x10^3/uL (0.0-1.1) Eosinophils # (Auto) 0.0 x10^3/uL (0.0-0.7) Basophils # (Auto) 0.0 x10^3/uL (0.0-0.2) Sodium Level 127 mmol/L (136-145) Potassium Level 3.9 mmol/L (3.5-5.1) Chloride Level 92 mmol/L (98-107) Carbon Dioxide Level 21 mmol/L (21-32) Anion Gap 14 (6-14) Blood Urea Nitrogen 22 mg/dL (7-20) Creatinine 1.5 mg/dL (0.6-1.0) Estimated GFR (Cockcroft-Gault) 34.9 BUN/Creatinine Ratio 15 (6-20) Glucose Level 110 mg/dL (70-99) Lactic Acid Level 4.2 mmol/L (0.4-2.0) 2.4 mmol/L (0.4-2.0) Calcium Level 9.3 mg/dL (8.5-10.1) Total Bilirubin 0.4 mg/dL (0.2-1.0) Aspartate Amino Transf (AST/SGOT) 20 U/L (15-37) Alanine Aminotransferase (ALT/SGPT) 19 U/L (14-59) Alkaline Phosphatase 67 U/L (46-116) Troponin I Quantitative < 0.017 ng/mL (0.000-0.055) < 0.017 ng/mL (0.000-0.055) XH-Flo-G-Type Natriuretic Peptide 1954 pg/mL (0-124) Total Protein 7.8 g/dL (6.4-8.2) Albumin 3.3 g/dL (3.4-5.0) Albumin/Globulin Ratio 0.7 (1.0-1.7) Prothrombin Time 11.4 SEC (11.7-14.0) Prothromb Time International Ratio 0.8 (0.8-1.1) Activated Partial Thromboplast Time 31 SEC (24-38) SARS-CoV-2 Antigen (Rapid) Negative (NEGATIVE) Test 01/28/21 08:05 Glucose (Fingerstick) 199 mg/dL (70-99) Laboratory Tests Test 01/28/21 00:35 01/28/21 00:40 01/28/21 00:50 01/28/21 05:58 White Blood Count 13.9 x10^3/uL (4.0-11.0) Red Blood Count 3.47 x10^6/uL (3.50-5.40) Hemoglobin 11.5 g/dL (12.0-15.5) Hematocrit 34.1 % (36.0-47.0) Mean Corpuscular Volume 98 fL (79-100) Mean Corpuscular Hemoglobin 33 pg (25-35) Mean Corpuscular Hemoglobin Concent 34 g/dL (31-37) Red Cell Distribution Width 14.3 % (11.5-14.5) Platelet Count 197 x10^3/uL (140-400) Neutrophils (%) (Auto) 83 % (31-73) Lymphocytes (%) (Auto) 10 % (24-48) Monocytes (%) (Auto) 7 % (0-9) Eosinophils (%) (Auto) 0 % (0-3) Basophils (%) (Auto) 0 % (0-3) Neutrophils # (Auto) 11.5 x10^3/uL (1.8-7.7) Lymphocytes # (Auto) 1.3 x10^3/uL (1.0-4.8) Monocytes # (Auto) 0.9 x10^3/uL (0.0-1.1) Eosinophils # (Auto) 0.0 x10^3/uL (0.0-0.7) Basophils # (Auto) 0.0 x10^3/uL (0.0-0.2) Sodium Level 127 mmol/L (136-145) Potassium Level 3.9 mmol/L (3.5-5.1) Chloride Level 92 mmol/L (98-107) Carbon Dioxide Level 21 mmol/L (21-32) Anion Gap 14 (6-14) Blood Urea Nitrogen 22 mg/dL (7-20) Creatinine 1.5 mg/dL (0.6-1.0) Estimated GFR (Cockcroft-Gault) 34.9 BUN/Creatinine Ratio 15 (6-20) Glucose Level 110 mg/dL (70-99) Lactic Acid Level 4.2 mmol/L (0.4-2.0) 2.4 mmol/L (0.4-2.0) Calcium Level 9.3 mg/dL (8.5-10.1) Total Bilirubin 0.4 mg/dL (0.2-1.0) Aspartate Amino Transf (AST/SGOT) 20 U/L (15-37) Alanine Aminotransferase (ALT/SGPT) 19 U/L (14-59) Alkaline Phosphatase 67 U/L (46-116) Troponin I Quantitative < 0.017 ng/mL (0.000-0.055) < 0.017 ng/mL (0.000-0.055) ZQ-Fzr-K-Type Natriuretic Peptide 1954 pg/mL (0-124) Total Protein 7.8 g/dL (6.4-8.2) Albumin 3.3 g/dL (3.4-5.0) Albumin/Globulin Ratio 0.7 (1.0-1.7) Prothrombin Time 11.4 SEC (11.7-14.0) Prothromb Time International Ratio 0.8 (0.8-1.1) Activated Partial Thromboplast Time 31 SEC (24-38) SARS-CoV-2 Antigen (Rapid) Negative (NEGATIVE) Test 01/28/21 08:05 Glucose (Fingerstick) 199 mg/dL (70-99) Assessment/Plan Assessment/Plan Patient is a 65-year-old female presenting overnight due to COPD exacerbation. COPD exacerbation, patient under investigation COVID-19, CHF, type 2 diabetes with nephropathy -Patient started on steroids and antibiotics in the emergency room; we will continue with Rocephin and azithromycin, will also continue Solu-Medrol -Breathing treatments ordered -Provide incentive spirometry -Patient started on sliding scale insulin and will adjust as needed -Home Lipitor restarted -DVT prophylaxis -GI prophylaxis Justifications for Admission Other Justification LINO CENTENO MD Jan 28, 2021 11:31
--- NOTE | 2021-01-28 12:11 | NUR ---
SW following. Discussed with RN, pt from home, 2L (does not use at home), ada diet, rapid COVID-19 negative -pt PUI awaiting PCR result. Pt currently on IV rocephin. RN advised no SW needs at this time. SW will continue to follow.
[2021-01-28] MEDS: DOXYCYCLINE HYCLATE 100 MG TABLET PO SCH ×2 (12:56→22:25)
[2021-01-28] MEDS: methylPREDNISolone SOD SUCC PF 40 MG/ML VIAL. IV SCH ×2 (14:37→22:24)
[2021-01-28 15:00] VITALS: BP 134/65
[2021-01-28 19:53] VITALS: BP 150/76
[2021-01-28] MEDS ORDERED: FAMOTIDINE 20 MG TABLET. PO SCH (21:00)
[2021-01-28] MEDS ORDERED: PSYLLIUM HUSK (SUGAR FREE) 1 PKT PACKET PO SCH (21:00)
[2021-01-28] MEDS ORDERED: ATORVASTATIN CALCIUM 10 MG TABLET. PO SCH (21:00)
[2021-01-28 23:33] VITALS: BP 133/65
[2021-01-29] MEDS: HEPARIN for SUB-Q USE 5,000 UNIT/ML VIAL. SQ SCH ×2 (05:44→14:00)
[2021-01-29] MEDS: methylPREDNISolone SOD SUCC PF 40 MG/ML VIAL. IV SCH (05:44)
[2021-01-29] MEDS: cefTRIAXone IV Push 1 GM VIAL. IVP SCH (05:45)
[2021-01-29 07:00] VITALS: BP 133/73
[2021-01-29 07:08] LABS: CALCIUM 8.9 mg/dL (8.5-10.1); GFR 55.6; POTASSIUM 3.2 mmol/L (3.5-5.1)
[2021-01-29] MEDS ORDERED: POTASSIUM CHLORIDE 20 MEQ TABLET.ER. PO ONE (08:00)
[2021-01-29] MEDS: FLUTICASONE/VILANTEROL 100/25 INHALER. INH SCH (08:51)
[2021-01-29] MEDS: IPRATROPIUM/ALBUTEROL 20/100mcg/INH INHALER. INH SCH ×2 (08:51→12:41)
[2021-01-29] MEDS: GABAPENTIN 300 MG CAPSULE. PO SCH (08:54)
[2021-01-29] MEDS: DOXYCYCLINE HYCLATE 100 MG TABLET PO SCH (08:55)
[2021-01-29] MEDS ORDERED: THIAMINE 100 MG TABLET. PO SCH (09:00)
[2021-01-29] MEDS ORDERED: FOLIC ACID 1 MG TABLET. PO SCH (09:00)
[2021-01-29] MEDS ORDERED: predniSONE 20 MG TABLET PO SCH (09:00)
[2021-01-29] MEDS ORDERED: MULTIVITAMIN with MINERAL TABLET. PO SCH (09:00)
--- NOTE | 2021-01-29 09:05 | PDOC ---
PULMONARY PROGRESS NOTES DATE: 01/29/21 TIME: 09:03 Subjective less soa Vitals Vital Signs Date Time Temp Pulse Resp B/P (MAP) Pulse Ox O2 Delivery O2 Flow Rate FiO2 01/29/21 07:00 98.1 72 17 133/73 (93) 100 Nasal Cannula 3.0 98.1 General: Alert, No acute distress Lungs: Clear Cardiovascular: S1 Neuro Exam: Alert Extremities: No Edema Skin: Warm Labs Laboratory Tests Test 01/28/21 00:35 01/28/21 00:40 01/28/21 00:50 01/28/21 05:58 White Blood Count 13.9 x10^3/uL (4.0-11.0) Red Blood Count 3.47 x10^6/uL (3.50-5.40) Hemoglobin 11.5 g/dL (12.0-15.5) Hematocrit 34.1 % (36.0-47.0) Mean Corpuscular Volume 98 fL (79-100) Mean Corpuscular Hemoglobin 33 pg (25-35) Mean Corpuscular Hemoglobin Concent 34 g/dL (31-37) Red Cell Distribution Width 14.3 % (11.5-14.5) Platelet Count 197 x10^3/uL (140-400) Neutrophils (%) (Auto) 83 % (31-73) Lymphocytes (%) (Auto) 10 % (24-48) Monocytes (%) (Auto) 7 % (0-9) Eosinophils (%) (Auto) 0 % (0-3) Basophils (%) (Auto) 0 % (0-3) Neutrophils # (Auto) 11.5 x10^3/uL (1.8-7.7) Lymphocytes # (Auto) 1.3 x10^3/uL (1.0-4.8) Monocytes # (Auto) 0.9 x10^3/uL (0.0-1.1) Eosinophils # (Auto) 0.0 x10^3/uL (0.0-0.7) Basophils # (Auto) 0.0 x10^3/uL (0.0-0.2) Sodium Level 127 mmol/L (136-145) Potassium Level 3.9 mmol/L (3.5-5.1) Chloride Level 92 mmol/L (98-107) Carbon Dioxide Level 21 mmol/L (21-32) Anion Gap 14 (6-14) Blood Urea Nitrogen 22 mg/dL (7-20) Creatinine 1.5 mg/dL (0.6-1.0) Estimated GFR (Cockcroft-Gault) 34.9 BUN/Creatinine Ratio 15 (6-20) Glucose Level 110 mg/dL (70-99) Lactic Acid Level 4.2 mmol/L (0.4-2.0) 2.4 mmol/L (0.4-2.0) Calcium Level 9.3 mg/dL (8.5-10.1) Total Bilirubin 0.4 mg/dL (0.2-1.0) Aspartate Amino Transf (AST/SGOT) 20 U/L (15-37) Alanine Aminotransferase (ALT/SGPT) 19 U/L (14-59) Alkaline Phosphatase 67 U/L (46-116) Troponin I Quantitative < 0.017 ng/mL (0.000-0.055) < 0.017 ng/mL (0.000-0.055) GP-Zcr-[id number]-Type Natriuretic Peptide 1954 pg/mL (0-124) Total Protein 7.8 g/dL (6.4-8.2) Albumin 3.3 g/dL (3.4-5.0) Albumin/Globulin Ratio 0.7 (1.0-1.7) Prothrombin Time 11.4 SEC (11.7-14.0) Prothromb Time International Ratio 0.8 (0.8-1.1) Activated Partial Thromboplast Time 31 SEC (24-38) SARS-CoV-2 RNA (GERRI) Negative (Negative) SARS-CoV-2 Antigen (Rapid) Negative (NEGATIVE) Test 01/28/21 08:05 01/28/21 11:34 01/28/21 16:43 01/28/21 18:30 Glucose (Fingerstick) 199 mg/dL (70-99) 196 mg/dL (70-99) 124 mg/dL (70-99) Troponin I Quantitative < 0.017 ng/mL (0.000-0.055) Test 01/28/21 21:06 01/29/21 06:10 01/29/21 07:25 Glucose (Fingerstick) 231 mg/dL (70-99) 197 mg/dL (70-99) Sodium Level 135 mmol/L (136-145) Potassium Level 3.2 mmol/L (3.5-5.1) Chloride Level 100 mmol/L (98-107) Carbon Dioxide Level 24 mmol/L (21-32) Anion Gap 11 (6-14) Blood Urea Nitrogen 22 mg/dL (7-20) Creatinine 1.0 mg/dL (0.6-1.0) Estimated GFR (Cockcroft-Gault) 55.6 Glucose Level 186 mg/dL (70-99) Calcium Level 8.9 mg/dL (8.5-10.1) Laboratory Tests Test 01/28/21 11:34 01/28/21 16:43 01/28/21 18:30 01/28/21 21:06 Glucose (Fingerstick) 196 mg/dL (70-99) 124 mg/dL (70-99) 231 mg/dL (70-99) Troponin I Quantitative < 0.017 ng/mL (0.000-0.055) Test 01/29/21 06:10 01/29/21 07:25 Sodium Level 135 mmol/L (136-145) Potassium Level 3.2 mmol/L (3.5-5.1) Chloride Level 100 mmol/L (98-107) Carbon Dioxide Level 24 mmol/L (21-32) Anion Gap 11 (6-14) Blood Urea Nitrogen 22 mg/dL (7-20) Creatinine 1.0 mg/dL (0.6-1.0) Estimated GFR (Cockcroft-Gault) 55.6 Glucose Level 186 mg/dL (70-99) Calcium Level 8.9 mg/dL (8.5-10.1) Glucose (Fingerstick) 197 mg/dL (70-99) Medications Active Scripts Medications Dose Route/Sig Max Daily Dose Days Date Category Metformin Hcl 500 Mg Tablet 500 Mg PO BIDWMEALS 01/28/21 Reported Ibuprofen 200 Mg Tablet Unknown Dose PO TID 10/08/20 Reported Atorvastatin Calcium 10 Mg Tablet Unknown Dose PO DAILY 10/08/20 Reported Gabapentin 600 Mg Tablet Unknown Dose PO TID 10/08/20 Reported Impression . IMPRESSION: 1. Dyspnea with acute hypoxic respiratory failure secondary to acute exacerbation of chronic obstructive pulmonary disease/acute bronchitis. Cannot exclude mild interstitial pneumonia. 2. Abnormal chest x-ray with faint interstitial infiltrates. Could be related to viral pneumonia. COVID is negative. 3. Underlying chronic obstructive pulmonary disease with ongoing tobaccoism. Plan . 1. Smoking cessation counseling provided. 2. Continue on current oxygen, keep saturation 92 and above. 3. Continue nebulizer. 4. Continue steroids. 5. she could be discharged today after 6 min walk. Discussed with DURAN. JUWAN SUMMERS MD Jan 29, 2021 09:05
[2021-01-29] MEDS: INSULIN LISPRO 300 UNITS/3 ML VIAL. SQ SCH ×2 (09:06→12:00)
[2021-01-29 11:00] VITALS: BP 151/77
--- NOTE | 2021-01-29 13:29 | NUR ---
SW following. Discussed with RN, possible discharge home today pending 6 minute walk. SW awaiting 6 minute walk to be completed. SW will continue to follow. Addendum: 01/29/21 at 1450 by CAMMIE YU 6 minute walk completed - pt does not require any oxygen. Discharge orders for home with self care.
[2021-01-29] MEDS ORDERED: DOXY100T PO (14:24)
[2021-01-29] MEDS ORDERED: CEFD300C PO (14:24)
[2021-01-29] MEDS ORDERED: PRED20TA PO (14:24)
[2021-01-29] MEDS ORDERED: FLUT1AER2 INH (14:24)
--- NOTE | 2021-01-29 14:27 | PDOC3 ---
Discharge Summary Visit Information Date of Admission: Jan 28, 2021 Date of Discharge: Jan 29, 2021 Admitting Diagnosis: copd exacerbation Final Diagnosis Problems Medical Problems: (1) Atrial fibrillation with RVR Status: Acute (2) CHF (congestive heart failure) Status: Acute (3) COPD (chronic obstructive pulmonary disease) Status: Acute (4) Dyspnea Status: Acute (5) Person under investigation for COVID-19 Status: Acute Brief Hospital Course Allergies Allergies Coded Allergies Type Severity Reaction Last Updated Verified No Known Drug Allergies 05/09/16 No Vital Signs Vital Signs Date Time Temp Pulse Resp B/P (MAP) Pulse Ox O2 Delivery O2 Flow Rate FiO2 01/29/21 11:00 98.6 82 18 151/77 (101) 100 Nasal Cannula 3.0 98.6 Lab Results Laboratory Tests Test 01/28/21 00:35 01/28/21 00:40 01/28/21 00:50 01/28/21 05:58 White Blood Count 13.9 x10^3/uL (4.0-11.0) Red Blood Count 3.47 x10^6/uL (3.50-5.40) Hemoglobin 11.5 g/dL (12.0-15.5) Hematocrit 34.1 % (36.0-47.0) Mean Corpuscular Volume 98 fL (79-100) Mean Corpuscular Hemoglobin 33 pg (25-35) Mean Corpuscular Hemoglobin Concent 34 g/dL (31-37) Red Cell Distribution Width 14.3 % (11.5-14.5) Platelet Count 197 x10^3/uL (140-400) Neutrophils (%) (Auto) 83 % (31-73) Lymphocytes (%) (Auto) 10 % (24-48) Monocytes (%) (Auto) 7 % (0-9) Eosinophils (%) (Auto) 0 % (0-3) Basophils (%) (Auto) 0 % (0-3) Neutrophils # (Auto) 11.5 x10^3/uL (1.8-7.7) Lymphocytes # (Auto) 1.3 x10^3/uL (1.0-4.8) Monocytes # (Auto) 0.9 x10^3/uL (0.0-1.1) Eosinophils # (Auto) 0.0 x10^3/uL (0.0-0.7) Basophils # (Auto) 0.0 x10^3/uL (0.0-0.2) Sodium Level 127 mmol/L (136-145) Potassium Level 3.9 mmol/L (3.5-5.1) Chloride Level 92 mmol/L (98-107) Carbon Dioxide Level 21 mmol/L (21-32) Anion Gap 14 (6-14) Blood Urea Nitrogen 22 mg/dL (7-20) Creatinine 1.5 mg/dL (0.6-1.0) Estimated GFR (Cockcroft-Gault) 34.9 BUN/Creatinine Ratio 15 (6-20) Glucose Level 110 mg/dL (70-99) Lactic Acid Level 4.2 mmol/L (0.4-2.0) 2.4 mmol/L (0.4-2.0) Calcium Level 9.3 mg/dL (8.5-10.1) Total Bilirubin 0.4 mg/dL (0.2-1.0) Aspartate Amino Transf (AST/SGOT) 20 U/L (15-37) Alanine Aminotransferase (ALT/SGPT) 19 U/L (14-59) Alkaline Phosphatase 67 U/L (46-116) Troponin I Quantitative < 0.017 ng/mL (0.000-0.055) < 0.017 ng/mL (0.000-0.055) PX-Aqt-S-Type Natriuretic Peptide 1954 pg/mL (0-124) Total Protein 7.8 g/dL (6.4-8.2) Albumin 3.3 g/dL (3.4-5.0) Albumin/Globulin Ratio 0.7 (1.0-1.7) Prothrombin Time 11.4 SEC (11.7-14.0) Prothromb Time International Ratio 0.8 (0.8-1.1) Activated Partial Thromboplast Time 31 SEC (24-38) SARS-CoV-2 RNA (GERRI) Negative (Negative) SARS-CoV-2 Antigen (Rapid) Negative (NEGATIVE) Test 01/28/21 08:05 01/28/21 11:34 01/28/21 16:43 01/28/21 18:30 Glucose (Fingerstick) 199 mg/dL (70-99) 196 mg/dL (70-99) 124 mg/dL (70-99) Troponin I Quantitative < 0.017 ng/mL (0.000-0.055) Test 01/28/21 21:06 01/29/21 06:10 01/29/21 07:25 01/29/21 11:20 Glucose (Fingerstick) 231 mg/dL (70-99) 197 mg/dL (70-99) 133 mg/dL (70-99) Sodium Level 135 mmol/L (136-145) Potassium Level 3.2 mmol/L (3.5-5.1) Chloride Level 100 mmol/L (98-107) Carbon Dioxide Level 24 mmol/L (21-32) Anion Gap 11 (6-14) Blood Urea Nitrogen 22 mg/dL (7-20) Creatinine 1.0 mg/dL (0.6-1.0) Estimated GFR (Cockcroft-Gault) 55.6 Glucose Level 186 mg/dL (70-99) Calcium Level 8.9 mg/dL (8.5-10.1) Laboratory Tests Test 01/28/21 16:43 01/28/21 18:30 01/28/21 21:06 01/29/21 06:10 Glucose (Fingerstick) 124 mg/dL (70-99) 231 mg/dL (70-99) Troponin I Quantitative < 0.017 ng/mL (0.000-0.055) Sodium Level 135 mmol/L (136-145) Potassium Level 3.2 mmol/L (3.5-5.1) Chloride Level 100 mmol/L (98-107) Carbon Dioxide Level 24 mmol/L (21-32) Anion Gap 11 (6-14) Blood Urea Nitrogen 22 mg/dL (7-20) Creatinine 1.0 mg/dL (0.6-1.0) Estimated GFR (Cockcroft-Gault) 55.6 Glucose Level 186 mg/dL (70-99) Calcium Level 8.9 mg/dL (8.5-10.1) Test 01/29/21 07:25 01/29/21 11:20 Glucose (Fingerstick) 197 mg/dL (70-99) 133 mg/dL (70-99) Brief Hospital Course HPI from admission Patient is a 65-year-old female who presented overnight due to ongoing shortness of breath. Patient has a history of COPD and is actively still smoking. Previo usly 1 pack a day smoker however reports that she is down to just a few cigarettes a day. Patient says last Tuesday she went to an urgent care due to shortness of breath and was placed on steroids. She combined this with home breathing treatments as well and initially had some improvement for a few days. Her shortness of breath however returned and last night she was struggling to breathe and thus presented to the emergency room. Upon arrival to the emergency room she was saturating in the 70s on room air; she is not on any home oxygen. Chest x-ray showed hazy opacities that were very much unchanged from previous x-ray. Patient was admitted and treatment for COPD exacerbation started. Admission patient remained overall stable and was able to wean off of oxygen. She was continued on breathing treatments steroids and antibiotics. Covid testing was all negative. 6-minute walk test showed she did not need home oxygen. With her clinical improvement she was discharged on 01/29 to finish home antibiotics and steroid burst. Patient was counseled on smoking cessation throughout her stay Greater than 30 minutes was spent on this discharge Discharge Information Condition at Discharge: Improved Disposition/Orders: D/C to Home Scheduled Atorvastatin Calcium (Atorvastatin Calcium) 10 Mg Tablet, Unknown Dose PO DAILY for FOR CHOLESTEROL, #30 Ref 0 (Reported) Entered as Reported by: LITTLE HU on 10/08/20903 Last Action: Continued on 01/28/21 111 by LINO CENTENO MD Cefdinir (Cefdinir) 300 Mg Capsule, 1 CAP PO BID for pneumonia for 7 Days, #14 Ref 0 Prescribed by: LINO CENTENO MD on 01/29/21 1424 Doxycycline Hyclate (Doxycycline Hyclate) 100 Mg Tablet, 100 MG PO BID for pneumonia for 7 Days, #14 Prescribed by: LINO CENTENO MD on 01/29/21 1424 Fluticasone/Vilanterol (Breo Ellipta 100-25 Mcg INH) 1 Each Blst.w.dev, 1 PUFF INH DAILY for copd for 30 Days, #1 Prescribed by: LINO CENTENO MD on 01/29/21 1424 Gabapentin (Gabapentin) 600 Mg Tablet, Unknown Dose PO TID for NEUROGENIC PAIN, (Reported) Entered as Reported by: LITTLE HU on 10/08/20903 Last Action: HELD on 01/28/211116 by LINO CENTENO MD Ibuprofen (Ibuprofen) 200 Mg Tablet, Unknown Dose PO TID for pain, (Reported) Entered as Reported by: LITTLE HU on 10/08/20903 Last Action: HELD on 01/28/211116 by LINO CENTENO MD Metformin Hcl (Metformin Hcl) 500 Mg Tablet, 500 MG PO BIDWMEALS for ANTI- DIABETIC, Ref 0 (Reported) Entered as Reported by: KITTY FUNES RN on 01/28/211101 Last Taken: Unknown Dose on Unknown Date & Time Last Action: HELD on 01/28/211116 by LINO CENTENO MD Prednisone (Prednisone) 20 Mg Tablet, 40 MG PO DAILY for copd exacb for 5 Days, #10 Prescribed by: LINO CENTENO MD on 01/29/21 1424 Discontinued Medications Metformin Hcl (Metformin Hcl) 1,000 Mg Tablet, Unknown Dose PO BIDWMEALS for diabeties, (Reported) Entered as Reported by: LITTLE HU on 10/08/20903 Last Action: Discontinued on 01/28/211101 by KITTY FUNES RN Vitamin D3/Vitamin K2 (D3 + K2 Dots 1,000 Units Tab) 1 Each Tab.rapdis, 1 EACH PO WEEKLY for low d, (Reported) Entered as Reported by: LITTLE HU on 10/08/20903 Last Action: Discontinued on 01/28/211101 by KITTY FUNES RN Justicifation of Admission Dx: Justifications for Admission: Justification of Admission Dx: Yes LINO CENTENO MD Jan 29, 2021 14:27
[2021-01-29 15:00] VITALS: BP 136/80
[2021-01-29] MEDS ORDERED: LACTOBACILLUS RHAMNOSUS GG 1 CAPSULE. PO SCH (21:00)
== END 2021-01-29 16:20 | disposition home or self-care (01) | DRG 291 ==
LOC: ER 00:15 → 6 SOUTH 02:23
PROVIDERS: ADMIT Internal Medicine; ATTEND Internal Medicine
DX: I50.23 Acute on chronic systolic (congestive) heart failure (principal); J18.9 Pneumonia, unspecified organism; J96.01 Acute respiratory failure with hypoxia; J44.0 Chronic obstructive pulmonary disease with (acute) lower respiratory infection; J44.1 Chronic obstructive pulmonary disease with (acute) exacerbation; J20.9 Acute bronchitis, unspecified; E11.21 Type 2 diabetes mellitus with diabetic nephropathy; E11.40 Type 2 diabetes mellitus with diabetic neuropathy, unspecified; E78.00 Pure hypercholesterolemia, unspecified; E78.5 Hyperlipidemia, unspecified; F17.210 Nicotine dependence, cigarettes, uncomplicated; I48.91 Unspecified atrial fibrillation; Z20.822 Contact with and (suspected) exposure to COVID-19; Z79.51 Long term (current) use of inhaled steroids; Z79.84 Long term (current) use of oral hypoglycemic drugs; Z79.899 Other long term (current) drug therapy
CPT/HCPCS: 36415; 71045; 80048; 80053; 82962; 83605; 83880; 84484; 85025; 85610; 85730; 87040; 87426; 93005; 94618; 94640; 96374; 96375; J0456; J0696; J1644; J1815; J1940; J2920; J2930; J3411; J3490; J7030; J7512; U0003; U0005; 99285-25; G0378